=== PATIENT | female | born 1950 | race Caucasian/White ===

== ENCOUNTER 2023-03-03 09:38 | Emergency (ER) | payer OTHER, SELFPAY ==
[2023-03-03 09:45] VITALS: BP 140/81; PULSE 77; RESP 18; TEMP 36.6; O2SAT 91; O2SAT 94
[2023-03-03 10:01] VITALS: BP 127/64; O2SAT 93
[2023-03-03 10:17] VITALS: BP 145/81; O2SAT 91
--- NOTE | 2023-03-03 10:18 | ED.EPISTAXIS ---
HPI - Epistaxis General Chief complaint: Epistaxis Stated complaint: epistaxis x 1 hour Time Seen by Provider: 03/03/23 09:53 Source: patient Mode of arrival: ambulatory Limitations: no limitations History of Present Illness HPI Narrative: Patient is a 72-year-old female who presents to the ED with report of epistaxis. Patient reports she wears oxygen via nasal cannula at night and felt like her nose was dry this morning. She blew her nose and began having bleeding from the right nare afterwards. She states the bleeding lasted for approximately 30 minutes before improving, but then recurred, prompting her evaluation. She is on eliquis and plavix d/t hx of afib and coronary stenting. Denies LH/dizziness, syncope. Related Data Allergies Allergy/AdvReac Type Severity Reaction Status Date / Time codeine Allergy Mild Nausea Verified 03/03/23 09:51 glimepiride Allergy Unknown Hyperactive Verified 03/03/23 09:51 ketorolac Allergy Unknown Unresponsiv Verified 03/03/23 09:51 e Review of Systems Review of Systems: CONSTITUTIONAL: Denies fever, chills, or sweats. ENT: See HPI. CARDIOVASCULAR: Denies chest pain. RESPIRATORY: Denies dyspnea. GASTROINTESTINAL: Denies abdominal pain, nausea, vomiting. NEUROLOGIC: Denies dizziness, lightheadedness, headache, numbness, or weakness. All systems reviewed & are unremarkable except as noted in HPI and below PMFSH Past Medical History Medical History (Updated 03/03/23 @ 12:12 by Larissa Mosher PA-C) Atrial fibrillation CAD (coronary artery disease) Surgical History Surgical History (Updated 03/03/23 @ 10:20 by Larissa Mosher PA-C) History of coronary artery stent placement Exam Narrative: GENERAL: Well appearing, obese with BMI of 39.1, non-toxic, in no acute distress. HEAD: Normocephalic, atraumatic. ENT: Normal left nare, no dried blood in left nare. Bleeding coming from right nare, appears to have area of pinpoint bleeding to lower vestibule. Minimal blood draining down posterior pharynx, no signs of posterior bleed. NECK: Supple. No adenopathy, no masses. RESPIRATORY: Airway patent, respirations nonlabored. Clear to auscultation bilaterally, no rales, rhonchi, wheezing. CARDIOVASCULAR: Regular rate and rhythm without murmurs, rubs, or gallops. Radial pulses 2+ and equal bilaterally. MUSCULOSKELETAL: Moves all extremities. Strength/ROM intact without gross deformities. SKIN: Warm, dry, normal color. No rashes. NEURO: A&O X3. Speech clear. Cranial nerves II-XII grossly intact. Steady gait. No ataxic movements. No focal deficits. PSYCHIATRIC: Appropriate mood and affect. Normal interaction. Course Vital Signs Vital signs: Vital Signs Temperature 98 F 03/03/23 09:45 Pulse Rate 77 03/03/23 09:45 Respiratory Rate 18 03/03/23 09:45 Blood Pressure 140/81 03/03/23 09:45 Pulse Oximetry 94 03/03/23 09:45 Oxygen Delivery Room Air 03/03/23 09:45 Temperature 98 F 03/03/23 09:45 Pulse Rate 88 03/03/23 12:24 Respiratory Rate 16 03/03/23 12:24 Blood Pressure 98/62 L 03/03/23 12:24 Pulse Oximetry 98 03/03/23 12:24 Oxygen Delivery Room Air 03/03/23 09:45 MDM - Epistaxis MDM Narrative Medical decision making narrative: Patient presented to ED with prolonged epistaxis from right nare, on Eliquis and Plavix. Nasal clamp was placed upon arrival. On reevaluation approximately 30 minutes later, patient still bleeding. She did appear to have an area of pinpoint bleeding that was visible within the lower vestibule of the R nare. Afrin and silver nitrate sticks were ordered. There was a misunderstanding between the nursing staff when I had ordered silver nitrate cautery sticks. The patient ended up using a silver nitrate stick on her own and cauterized her entire R nare herself. ED nurse did notify me of this and education was provided on proper use of silver nitrate. On reevaluation, area of patient's bleeding does a
[2023-03-03 10:31] VITALS: BP 106/79; O2SAT 91
[2023-03-03] MEDS: OXYMETAZOLINE HCL 0.05% NAS 15 ML BTL (*BKC) 1 SPRAY NASAL (10:32)
[2023-03-03] MEDS: SILVER NITRATE (*SP) STICK 1 EACH TOPICAL (10:33)
[2023-03-03 11:29] VITALS: BP 109/56; PULSE 97; RESP 18; O2SAT 96
[2023-03-03 12:24] VITALS: BP 98/62; PULSE 88; RESP 16; O2SAT 98
== END 2023-03-03 12:25 | disposition home or self-care (01) ==
PROVIDERS: Emergency Provider Physician Assistant; PCP Family Medicine
DX: R04.0 Epistaxis (principal); I48.91 Unspecified atrial fibrillation; I25.10 Atherosclerotic heart disease of native coronary artery without angina pectoris; Z95.5 Presence of coronary angioplasty implant and graft; Z79.01 Long term (current) use of anticoagulants; Z79.02 Long term (current) use of antithrombotics/antiplatelets
CPT/HCPCS: 30901; 99283; A9270